=== PATIENT | female | born 1980 | race African-American/Black ===

== ENCOUNTER 2018-05-25 21:24 | Inpatient (IN) | payer MEDICARE ==
[~2018-05-25] VITALS: Ht 170.2 cm; Wt 98.9 kg
[2018-05-25 21:30] VITALS: BP_SYST 146
[2018-05-25 23:33] LABS: BILIRUBIN,URINE NEGATIVE (NEGATIVE); BLOOD, URINE NEGATIVE (NEGATIVE); CLARITY/URINE CLEAR (CLEAR); COLOR,URINE YELLOW (YELLOW); GLUCOSE,URINE NEGATIVE (NEGATIVE); KETONES,URINE NEGATIVE (NEGATIVE); LEUKOCYTE ESTERASE ,URINE NEGATIVE (NEGATIVE); NITRITE, URINE NEGATIVE (NEGATIVE); PROTEIN URINE NEGATIVE (NEGATIVE); UROBILINOGEN,URINE 0.2 (0.2-1.0)
[2018-05-25] MEDS ORDERED: NACL 0.9% 1,000 ML IV ONE (23:33)
[2018-05-25] MEDS ORDERED: PIPERACILLIN/TAZO 4.5 GM in NS 100 ML IV ONE (23:45)
[2018-05-25] MEDS ORDERED: ONDANSETRON HCL 4 MG/2 ML VIAL IVP ONE (23:45)
[2018-05-25] MEDS ORDERED: MORPHINE SULFATE 10 MG/ML VIAL IVP ONE (23:45)
[2018-05-26 00:04] LABS: BARBITURATE, URINE NEGATIVE (NEG <=200); BENZODIAZEPINE, URINE NEGATIVE (NEG <=150); CANNABINOID, URINE POSITIVE (NEG <=50); COCAINE, URINE NEGATIVE (NEG <=150); METHAMPHETAMINES SCREEN,URINE NEGATIVE (NEG <=500); OPIATE, URINE NEGATIVE (NEG <=100); PHENCYCLIDINE SCREEN,URINE NEGATIVE (NEG <=25); UR TRICYCLIC ANTIDEPRESSANTS NEGATIVE (NEG <=300); URINE AMPHETAMINE NEGATIVE (NEG <=500); URINE METHADONE NEGATIVE (NEG <=200); URINE OXYCODONE SCREEN NEGATIVE (NEG <=100); URINE PROPOXYPHENE SCREEN NEGATIVE (NEG <=300)
[2018-05-26] MEDS ORDERED: PIPERACILLIN/TAZOBACTAM 4.5 GM/VIAL (ZOSYN) IV ONE (00:48)
[2018-05-26 01:05] LABS: BASOPHILS # (AUTO) 0.1 K/uL (0.0-0.2); BASOPHILS % (AUTO) 0.9 % (0.0-2.0); EOSINOPHILS # (AUTO) 0.2 K/uL (0.0-0.4); EOSINOPHILS % (AUTO) 2.4 % (0.0-4.0); HEMATOCRIT 34.2 % (36-48); HEMOGLOBIN 11.5 g/dL (12.0-16.0); LYMPHOCYTES # (AUTO) 3.3 K/uL (1.0-5.5); LYMPHOCYTES % (AUTO) 38.2 % (20.5-51.5); MEAN CORPUSCULAR HEMOGLOBIN 28 pg (27-31); MEAN CORPUSCULAR HGB CONC 34 % (32-36); MEAN CORPUSCULAR VOLUME 83 fL (79.0-98.0); MONOCYTES # (AUTO) 0.4 K/uL (0.0-1.0); MONOCYTES % (AUTO) 5.1 % (1.7-9.3); NEUTROPHILS # (AUTO) 4.6 K/uL (1.8-7.7); NEUTROPHILS % (AUTO) 53.4 % (40.0-70.0); PLATELET COUNT (AUTO) 287 K/uL (130-430); RED BLOOD CELL COUNT(AUTO) 4.11 MIL/uL (4.2-6.2); RED CELL DISTRIBUTION WIDTH 14.3 % (9.0-15.0); WHITE BLOOD COUNT (AUTO) 8.6 K/uL (4.8-10.8)
[2018-05-26 01:13] LABS: PROTHROMBIN TIME 10.5 SECS (9.5-12.5)
[2018-05-26 01:17] LABS: CALCIUM 8.6 mg/dL (8.4-11.0); CREATININE 0.66 mg/dL (0.55-1.30); POTASSIUM 3.4 mmol/L (3.5-5.1)
[2018-05-26] MEDS ORDERED: MORPHINE SULFATE 10 MG/ML VIAL IVP ONE (01:30)
[2018-05-26] MEDS ORDERED: ONDANSETRON HCL 4 MG/2 ML VIAL IVP ONE (01:30)
[2018-05-26 01:34] LABS: ALBUMIN 3.4 g/dL (3.4-4.8); TOTAL BILIRUBIN 0.1 mg/dL (0.0-1.0)
[2018-05-26] MEDS ORDERED: ONDANSETRON HCL 4 MG/2 ML VIAL IVP PRN (02:00)
[2018-05-26 02:34] VITALS: BP_SYST 106
[2018-05-26 03:40] VITALS: BP_SYST 110
[2018-05-26] MEDS: HYDROmorphone 1 MG INJ. 1 MG/ML AMPUL IVP PRN ×5 (03:40→20:50)
[2018-05-26] MEDS ORDERED: PIPERACILLIN/TAZOBACTAM 3.375 GM/VIAL (ZOSYN) IV ONE (05:03)
[2018-05-26] MEDS: PIPERACILLIN/TAZO 3.375/DEX-IS 50 ML IV SCH ×2 (05:35→12:18)
[2018-05-26] MEDS: HYDROcodone/ACETAMIN 10-325 MG TAB PO PRN ×2 (05:40→20:02)
[2018-05-26 08:00] VITALS: BP_SYST 119
[2018-05-26 11:21] VITALS: BP_SYST 115
[2018-05-26] MEDS ORDERED: POTASSIUM CHLORIDE 20 MEQ TAB.PRT.SR PO ONE (15:30)
[2018-05-26 15:38] VITALS: BP_SYST 108
[2018-05-26] MEDS ORDERED: DOCUSATE SODIUM 250 MG CAPSULE PO ONE (16:00)
[2018-05-26] MEDS ORDERED: MILK OF MAGNESIA 30 ML UDC PO PRN (16:00)
[2018-05-26] MEDS ORDERED: TEMAZEPAM 15 MG CAPSULE PO PRN (16:00)
[2018-05-26 20:00] VITALS: BP_SYST 113
[2018-05-26] MEDS: DOCUSATE SODIUM 250 MG CAPSULE PO SCH (20:00)
[2018-05-27 00:15] VITALS: BP_SYST 111
[2018-05-27] MEDS: HYDROmorphone 1 MG INJ. 1 MG/ML AMPUL IVP PRN ×3 (04:12→12:25)
[2018-05-27 07:11] LABS: CALCIUM 8.2 mg/dL (8.4-11.0); CREATININE 0.61 mg/dL (0.55-1.30)
[2018-05-27 07:24] LABS: MEAN CORPUSCULAR VOLUME 85 fL (79.0-98.0)
[2018-05-27 07:35] LABS: BASOPHILS % (AUTO) 0.2 % (0.0-2.0); EOSINOPHILS # (AUTO) 0.2 K/uL (0.0-0.4); EOSINOPHILS % (AUTO) 3.3 % (0.0-4.0); HEMATOCRIT 32.7 % (36-48); LYMPHOCYTES # (AUTO) 2.1 K/uL (1.0-5.5); LYMPHOCYTES % (AUTO) 30.6 % (20.5-51.5); MEAN CORPUSCULAR HEMOGLOBIN 29 pg (27-31); MEAN CORPUSCULAR HGB CONC 34 % (32-36); MONOCYTES # (AUTO) 0.3 K/uL (0.0-1.0); MONOCYTES % (AUTO) 4.4 % (1.7-9.3); NEUTROPHILS # (AUTO) 4.4 K/uL (1.8-7.7); NEUTROPHILS % (AUTO) 61.5 % (40.0-70.0); PLATELET COUNT (AUTO) 279 K/uL (130-430); RED BLOOD CELL COUNT(AUTO) 3.85 MIL/uL (4.2-6.2); RED CELL DISTRIBUTION WIDTH 14.1 % (9.0-15.0)
[2018-05-27 08:05] VITALS: BP_SYST 131
[2018-05-27 08:14] LABS: ERYTHROCYTE SEDIMENTATION RATE 13 MM/HR (0-20)
[2018-05-27] MEDS: DOCUSATE SODIUM 250 MG CAPSULE PO SCH (08:25)
[2018-05-27 11:32] VITALS: BP_SYST 131
[2018-05-27 12:00] VITALS: BP_SYST 131
== END 2018-05-27 14:20 | disposition short-term general hospital (02) | DRG 346 ==
LOC: SED 21:24 → SMU 05-26 01:53
PROVIDERS: ADMIT Internal Medicine; ATTEND Internal Medicine
DX: M32.9 Systemic lupus erythematosus, unspecified (principal); E87.6 Hypokalemia; L08.9 Local infection of the skin and subcutaneous tissue, unspecified; Z91.018 Allergy to other foods
CPT/HCPCS: 36415; 71045; 80048; 80053; 80307; 81003; 83605; 83690-TC; 83880; 84484; 84703; 85025; 85610-TC; 85651-TC; 87040-TC; 93005; 96365; 96375; 96376; 99285; J1170; J2270; J2405; J2543